=== PATIENT | female | born 1995 | race African-American/Black ===

== ENCOUNTER 2016-06-08 09:08 | Emergency (ER) | payer MEDICAID ==
[~2016-06-08 09:08] MED LIST: MACROBID 100 M100 M1 PO; NO HOME MEDS; NORCO 5-325 TA1 EACH PO; OMEPRAZOLE20 M4 PO; PRENATA CHEWAB1 EAC1 PO; PRENATAL VITAM1 EA12 PO; VITAMIN D350000 UNI1 PO; ZOFRAN4 M2 PO/SL
[2016-06-08] MEDS ORDERED: ESCITALOPRAM OX20 M1 PO (09:28)
== END 2016-06-08 11:18 ==
LOC: EDMED 09:08
DX: S09.90XA Unspecified injury of head, initial encounter (principal); S51.812A Laceration without foreign body of left forearm, initial encounter; S10.93XA Contusion of unspecified part of neck, initial encounter; Y09 Assault by unspecified means

== ENCOUNTER 2016-06-15 14:00 | Emergency (ER) | payer MEDICAID ==
[~2016-06-15 14:00] MED LIST changes: +ESCITALOPRAM OX20 M1 PO
[2016-06-15] MEDS ORDERED: LEXAPRO10 M2 PO (15:06)
[2016-06-15] MEDS ORDERED: METHYLPHENIDATE2011 PO (15:06)
[2016-06-15] MEDS ORDERED: XANAX0.25 M1 PO (15:07)
[2016-06-15] MEDS ORDERED: LAMICTAL25 M2 PO (15:07)
== END 2016-06-15 16:08 ==
LOC: EDMED 14:00
DX: M54.6 Pain in thoracic spine (principal); M54.2 Cervicalgia; G89.29 Other chronic pain
CPT/HCPCS: J1885